=== PATIENT | female | born 1995 | race Caucasian/White ===

== ENCOUNTER 2017-07-16 15:02 | Emergency (ER) | payer MEDICAID, OTHER ==
[~2017-07-16] VITALS: Ht 154.9 cm; Wt 54.0 kg
[~2017-07-16 15:02] MED LIST: AZIT250T94 PO; D-ME473S2 PO; DOCU-144 PO; FERR256T PO; HYDR25SU24 PR; ONDA-43 PO; POLY17PO6 PO; PREN-46 PO
[2017-07-16 15:06] VITALS: Ht 154.9 cm; Wt 54.0 kg
[2017-07-16] MEDS ORDERED: AMOX500C2 PO (17:24)
[2017-07-16] MEDS ORDERED: IBUP-1542 PO (17:24)
--- NOTE | 2017-07-16 17:28 | ERD ---
ER Documentation Chief Complaint Chief Complaint Headache, ear pain HPI 22-year-old female comes in with bilateral temporal achy headache, with left ear pain, cough and congestion for 1 day. The patient describes sharp, stabbing ear pain in her left inner ear. She also reports dry cough, clear rhinorrhea nasal discharge. She has not had any fevers or chills. No shortness breath, chest pain. ROS All systems reviewed and are negative except as per history of present illness. Medications Home Meds Active Scripts Ibuprofen* (Motrin*) 600 Mg Tab, 600 MG PO Q6, #30 TAB Prov:BARBARA MATOS PA-C 07/16/17 Amoxicillin* (Amoxicillin*) 500 Mg Cap, 500 MG PO TID for 10 Days, CAP Prov:BARBARA MATOS PA-C 07/16/17 Hydrocortisone Acetate* (Anusol-HC*) 25 Mg/Supp.rect Supp.rect, 1 SUPP DE HS, # 12 SUPP.RECT Prov:JUAN ALBERTO MORALES NP 03/25/16 Polyethylene Glycol* (Miralax*) 17 Gm Powd.pack, 17 GM PO DAILY, #7 Prov:JUAN ALBERTO MORALES NP 03/25/16 Docusate Sodium* (Colace*) 100 Mg Capsule, 100 MG PO TID, #60 CAP Prov:JUAN ALBERTO MORALES NP 03/25/16 Dextromethorphan Hb-Promethazine Hcl* (Promethazine DM* Syrup) 473 Ml Syrup, 5 ML PO Q6 Y for COUGH, #1 BOTTLE Prov:JOSE F HENLEY 04/20/15 Azithromycin* (Zithromax*) 250 Mg Tablet, 250 MG PO .RachaelPACK DIRECTED, #6 TAB TAKE 500 MG (2 TABS) THE FIRST DAY THEN 250 MG (1 TAB) DAYS 2-5 Prov:JOSE F HENLEY 04/20/15 Ondansetron Hcl* (Zofran*) 4 Mg Tab, 4 MG PO Q4H Y for NAUSEA AND OR VOMITING, # 20 TAB Prov:CASSIA VELASQUEZ PA-C 03/16/15 Reported Medications Ferrous Gluconate (Iron) 256 Mg Tablet, 256 MG PO DAILY 09/17/13 Vit #108/Iron/Fa ( ONE TABLET) 1 Each Tablet, 1 EACH PO DAILY 09/17/13 Allergies Allergies: Coded Allergies: No Known Allergies (Verified Allergy, Mild, 03/16/15) PMhx/Soc History of Surgery: Yes (C-SECTIONx 2) Anesthesia Reaction: No Hx Neurological Disorder: No Hx Respiratory Disorders: No Hx Cardiac Disorders: No Hx Psychiatric Problems: No Hx Miscellaneous Medical Probl: No (NO KNOWN MEDICAL CONDITION) Hx Alcohol Use: Yes (weekends only) Hx Substance Use: No Hx Tobacco Use: No Physical Exam Vitals Vital Signs Date Time Temp Pulse Resp B/P Pulse Ox O2 Delivery O2 Flow Rate FiO2 07/16/17 15:06 98.9 92 16 135/67 98 Physical Exam General: Well-developed, well-nourished. The patient appears in no acute distress. HEENT: Head is normocephalic, atraumatic. No scleral icterus. Right ear normal , left TM is bulging and erythematous, no perforation, otorrhea or discharge, oropharynx is clear. Neck: Supple. Nontender. Lungs: Clear to auscultation. Normal air movement. Heart: Regular rate and rhythm. S1 and S2 are normal. No murmurs, gallops, or rubs. Abdomen: Distended. Extremities: No clubbing or cyanosis. Normal pulses. Moving extremities x 4. No weakness. Neurologic: Alert and oriented 3. No focal deficits. Skin: Normal turgor. No rash or lesions. Procedures/MDM The patient is a a 2-year-old female who comes in with an acute upper respiratory infection, presumed viral, with associated headache, and otitis media of the left ear. No signs of intracranial hemorrhage, meningitis, encephalitis, stroke, TIA. The patient has a differential diagnosis of a viral upper respiratory infection, bacterial upper respiratory infection, bronchitis, pneumonia, pharyngitis, laryngitis, epiglottitis, croup, pneumonia. Patient has a normal pulmonary examination, clear breath sounds, normal pulse oximetry, with no corrective measures needed at this time. Fluids, rest, antipyretics were encouraged. Departure Diagnosis: Primary Impression: Left otitis media Additional Impression: Cough Condition: Good Patient Instructions: Otitis Media, Abx Tx (Adult), Uri, Viral, No Abx (Adult) BARBARA MATOS PA-C Jul 16, 2017 17:28
== END 2017-07-16 17:34 | disposition home or self-care (01) ==
LOC: FTE 15:02
DX: H66.92 Otitis media, unspecified, left ear (principal); R05 Cough
CPT/HCPCS: 99283

== ENCOUNTER 2017-09-28 21:00 | Emergency (ER) | END 2017-09-29 03:52 | disposition home or self-care (01) ==

== ENCOUNTER 2018-08-29 14:55 | Emergency (ER) | END 2018-08-29 17:55 | disposition home or self-care (01) ==